=== PATIENT | female | born 1995 | race Two or more races ===

== ENCOUNTER 2025-01-12 10:15 | Emergency (ER) | payer OTHER ==
[~2025-01-12] VITALS: Ht 154.9 cm; Wt 68.5 kg
[2025-01-12] MEDS ORDERED: KETOROLAC TROMETHAMINE 60 MG VIAL IM ONE (14:30)
[2025-01-12 15:04] LABS: HEMATOCRIT 40.1 % (36.0-45.00); HEMOGLOBIN 13.2 g/dL (12.0-15.00); MEAN CELL VOLUME 87.5 fL (80.00-100.00); MEAN CORPUSCULAR HEMOGLOBIN 28.9 pg (27.00-32.0); PLATELET COUNT 289 K/uL (150-450); RED BLOOD COUNT 4.58 M/uL (4.00-6.00); RED CELL DISTRIBUTION WIDTH 12.6 % (11.5-14.5)
[2025-01-12] MEDS ORDERED: ACETAMINOPHEN500 M1 PO (16:50)
[2025-01-12] MEDS ORDERED: GILTUSS COUGH-118 M1 PO (16:50)
[2025-01-12] MEDS ORDERED: ZITHROMAX TRI-500 MG PO (16:50)
== END 2025-01-12 17:06 | disposition home or self-care (01) ==
LOC: ER 10:18
PROVIDERS: Preventive Medicine Public Health & General Preventive Medicine
DX: J06.9 Acute upper respiratory infection, unspecified (principal); Z20.822 Contact with and (suspected) exposure to COVID-19

== ENCOUNTER 2025-02-19 06:14 | Emergency (ER) | payer OTHER ==
[~2025-02-19] VITALS: Ht 154.9 cm; Wt 70.8 kg
[~2025-02-19 06:14] MED LIST: ACETAMINOPHEN500 M1 PO; GILTUSS COUGH-118 M1 PO; ZITHROMAX TRI-500 MG PO
[2025-02-19] MEDS ORDERED: HYOSCYAMINE SULFATE 0.125 MG TAB.SUBL SL STA (07:00)
[2025-02-19] MEDS ORDERED: PROMETHAZINE HCL 50 MG/ML AMPUL IM STA (07:00)
[2025-02-19] MEDS ORDERED: LACTOBACILLUS ACIDOPHILUS 1 CAP CAP PO STA (07:01)
[2025-02-19] MEDS ORDERED: FAMOTIDINE/PF 20 MG/2 ML VIAL IV PUSH STA (07:01)
[2025-02-19] MEDS ORDERED: HYOSCYAMINE SULFATE 0.125 MG TAB.SUBL ONE (07:14)
[2025-02-19] MEDS ORDERED: PROMETHAZINE HCL 50 MG/ML AMPUL IM ONE (07:14)
[2025-02-19] MEDS ORDERED: LACTOBACILLUS ACIDOPHILUS 1 CAP CAP PO ONE (07:15)
[2025-02-19] MEDS ORDERED: FAMOTIDINE/PF 20 MG/2 ML VIAL ONE (07:15)
[2025-02-19] MEDS ORDERED: 0.9 % SODIUM CHLORIDE 1,000 ML IV ONE (07:15)
[2025-02-19 07:44] LABS: HEMATOCRIT 42.4 % (36.0-45.00); HEMOGLOBIN 14.3 g/dL (12.0-15.00); MEAN CELL VOLUME 85.4 fL (80.00-100.00); MEAN CORPUSCULAR HEMOGLOBIN 28.8 pg (27.00-32.0); MEAN CORPUSCULAR HGB CONC 33.7 g/dl (32.0-36.0); PLATELET COUNT 373 K/uL (150-450); RED BLOOD COUNT 4.97 M/uL (4.00-6.00); RED CELL DISTRIBUTION WIDTH 13.3 % (11.5-14.5)
[2025-02-19 08:10] LABS: CALCIUM 9.6 mg/dL (8.5-10.1); CREATININE SERUM 0.83 mg/dL (0.55-1.02); GFR 82.46; POTASSIUM 3.83 mEq/L (3.5-5.1)
[2025-02-19 08:14] LABS: PH,URINE 5.5 (5.0-8.0); URINE APPEARANCE Clear; URINE BILIRRUBIN Negative (NEGATIVE); URINE BLOOD Large; URINE COLOR Yellow; URINE GLUCOSE Negative (NEGATIVE); URINE KETONE Negative (NEGATIVE); URINE LEUKOCYTE Trace; URINE NITRATE Negative; URINE PROTEIN Negative (NEGATIVE); URINE UROBILINOGEN 0.2 E.U./dl
[2025-02-19 08:18] LABS: URINE BACTERIA 1540.8 uL (0.0-1933); URINE EPITHELIAL CELLS 23.5 uL (0.0-38.8); URINE RBC 18.1 uL (0.0-20.8); URINE WBC 18.1 uL (0.0-23.2)
[2025-02-19] MEDS ORDERED: DIPHENOXYLATE HCL/ATROPINE 1 UDTAB TABLET PO ONE (09:45)
[2025-02-19] MEDS ORDERED: PEPCID AC20 MG PO (10:58)
[2025-02-19] MEDS ORDERED: ONDANSETRON ODT8 MG PO (10:58)
== END 2025-02-19 11:05 | disposition home or self-care (01) ==
LOC: ER 06:15
PROVIDERS: General Practice
DX: R11.10 Vomiting, unspecified (principal); R19.7 Diarrhea, unspecified

== ENCOUNTER → 2025-09-13 | Emergency (ER) | payer OTHER ==
[~2025-09-13] VITALS: Ht 154.9 cm; Wt 64.0 kg
[~2025-09-13] MED LIST changes: +ACETAMINOPHEN 500 MG GEL..CAP PO ONE; +AMOX-CLAV 875-1 EACH PO; +DEXAMETHASONE SODIUM PHOSPHATE 4 MG/ML VIAL IM ONE; +DEXAMETHASONE SODIUM PHOSPHATE 4 MG/ML VIAL ONE; +IBU600 MG PO; +KETOROLAC TROMETHAMINE 60 MG VIAL IM ONE; +ONDANSETRON ODT8 MG PO; +ORPHENADRINE CITRATE 30 MG/ML AMPUL IM ONE; +ORPHENADRINE CITRATE 30 MG/ML AMPUL ONE; +PEPCID AC20 MG PO
== END | disposition home or self-care (01) ==
LOC: ER 07:06
DX: S91.321A Laceration with foreign body, right foot, initial encounter (principal); W45.8XXA Other foreign body or object entering through skin, initial encounter; Y93.89 Activity, other specified; Y92.89 Other specified places as the place of occurrence of the external cause

== ENCOUNTER → 2025-10-18 | Emergency (ER) | payer OTHER ==
[~2025-10-18] VITALS: Ht 154.9 cm; Wt 65.3 kg
[~2025-10-18] MED LIST changes: -ACETAMINOPHEN 500 MG GEL..CAP PO ONE; -DEXAMETHASONE SODIUM PHOSPHATE 4 MG/ML VIAL IM ONE; -DEXAMETHASONE SODIUM PHOSPHATE 4 MG/ML VIAL ONE; -KETOROLAC TROMETHAMINE 60 MG VIAL IM ONE; -ORPHENADRINE CITRATE 30 MG/ML AMPUL IM ONE; -ORPHENADRINE CITRATE 30 MG/ML AMPUL ONE
== END | disposition home or self-care (01) ==
LOC: ER 07:09
DX: H65.192 Other acute nonsuppurative otitis media, left ear (principal)